=== PATIENT | female | born 1955 | race Caucasian/White ===

== ENCOUNTER 2022-12-26 08:16 | Outpatient (CLI) | payer MEDICARE | END 2022-12-26 08:17 | disposition home or self-care (01) | LOC: CSHMAMMO 08:16 | PROVIDERS: ATTEND Obstetrics & Gynecology | DX: Z12.31 Encounter for screening mammogram for malignant neoplasm of breast (principal); Z80.3 Family history of malignant neoplasm of breast; Z91.89 Other specified personal risk factors, not elsewhere classified | CPT/HCPCS: 77063; 77067 ==

== ENCOUNTER 2025-02-11 08:29 | Outpatient (CLI) | payer MEDICARE | END 2025-02-11 08:30 | disposition home or self-care (01) | LOC: CSHMAMMO 08:29 | PROVIDERS: ATTEND Obstetrics & Gynecology | DX: Z12.31 Encounter for screening mammogram for malignant neoplasm of breast (principal); Z80.3 Family history of malignant neoplasm of breast; Z91.89 Other specified personal risk factors, not elsewhere classified | CPT/HCPCS: 77063; 77067 ==